=== PATIENT | female | born 1990 | race American Indian/Alaskan Native ===

== ENCOUNTER 2018-01-21 23:06 | Emergency (ER) | payer OTHER, BC ==
[2018-01-21 23:12] VITALS: BP 128/84; PULSE 87; RESP 20; TEMP 98.1; O2SAT 99
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
== END 2018-01-21 23:50 | disposition home or self-care (01) ==
LOC: C.ER 23:06
DX: S39.012A Strain of muscle, fascia and tendon of lower back, initial encounter (principal); W19.XXXA Unspecified fall, initial encounter